=== PATIENT | female | born 1940 | race Caucasian/White ===

== ENCOUNTER 2017-03-10 08:48 | Day surgery (SDC) | payer MEDICARE ==
[~2017-03-10 08:48] MED LIST: Midazolam 1 MG/ML 2 ML SDV ONE; Propofol 200 MG/20 ML SDV ONE; fentaNYL 100 MCG/2 ML SDV ONE
[2017-03-10] MEDS ORDERED: Lactated Ringers 0 ML ONE (08:49)
[2017-03-10] MEDS ORDERED: Bupivacaine 0.5% 50 ML MDV ONE (09:44)
[2017-03-10] MEDS ORDERED: Bacitracin Oint 1 GM U/D Packet ONE (09:44)
[2017-03-10] MEDS ORDERED: Lidocaine 1% with EPINEPHrine 1:100,000 50 ML MDV ONE (09:44)
[2017-03-10] MEDS ORDERED: Sodium Chloride 0.9% 1,000 ML IV SCH (10:30)
[2017-03-10] MEDS ORDERED: ceFAZolin 2 GM in Premix Bag 1 BAG IV ONE ×2 (11:00)
[2017-03-10 12:12] VITALS: BP 133/77
--- NOTE | 2017-03-10 13:08 | OR ---
DATE OF PROCEDURE: 03/10/2017 PROCEDURE: 1. Excision of left posterior leg skin lesion (7.2 cm). 2. Intermediate closure of #1. COMPLICATIONS: None. FORM BUILDING SUPERVISOR: None. ANESTHESIA: 1. MAC (light MAC). 2. Local anesthetic. PREOPERATIVE DIAGNOSIS: Large skin lesion, concern for malignancy/painful. POSTOPERATIVE DIAGNOSIS: Large skin lesion, concern for malignancy/painful. RISKS: Risks, benefits, alternatives, limitations including, but not limited to infection, bleeding, and chronic wound formation were discussed with the patient. We also discussed the fact that she is on Coumadin and has some significant COPD risks, which we discussed with her. PROCEDURE IN DETAIL: The patient was placed in the right lateral decubitus position. Local anesthetic was used to anesthetize the area. This was noted to be 2.8 cm and was carried out with a 3:1 ratio with a 7 cm total excision length, width was 2.2 cm. This was then carried down with a 15 blade and electrocautery was used to excise this. Prior to removal, a single stitch was placed. Double stitch was placed lateral. The wound was then closed by slowly elevating the skin flaps, then 3-0 Vicryl, then a 4-0 Prolene in a running nonlocked position, then horizontal mattress sutures in combination with interrupted nylons. Dressings were applied. The patient tolerated the procedure well. Presley Dorantes MD /[id number]
== END 2017-03-10 11:35 | disposition home or self-care (01) ==
LOC: JP.SDS 08:48
PROVIDERS: ATTEND Surgery
DX: C44.719 Basal cell carcinoma of skin of left lower limb, including hip (principal); J44.9 Chronic obstructive pulmonary disease, unspecified; K21.9 Gastro-esophageal reflux disease without esophagitis; E11.22 Type 2 diabetes mellitus with diabetic chronic kidney disease; N18.9 Chronic kidney disease, unspecified; Z91.09 Other allergy status, other than to drugs and biological substances
CPT/HCPCS: 11606; 12032; 36415; 80048; 85027; 85610; 88305; J0690; J2250; J2704; J3010; J7040; J7120

== ENCOUNTER 2017-06-07 07:19 | Day surgery (SDC) | payer MEDICARE ==
[2017-06-07] MEDS ORDERED: Dextrose 5%-Lactated Ringers 1,000 ML IV SCH (08:00)
[2017-06-07] MEDS ORDERED: fentaNYL 100 MCG/2 ML SDV ONE (08:02)
[2017-06-07] MEDS ORDERED: Midazolam 1 MG/ML 2 ML SDV ONE (08:03)
[2017-06-07] MEDS ORDERED: Propofol 200 MG/20 ML SDV ONE (08:04)
[2017-06-07] MEDS ORDERED: Glycopyrrolate 0.2 MG/ML 2 ML SDV IVPUSH ONE (08:30)
[2017-06-07 10:37] VITALS: BP 153/81
--- NOTE | 2017-06-11 21:30 | OR ---
DATE OF PROCEDURE: 06/07/2017 PREOPERATIVE DIAGNOSIS: History of Fernandes esophagus. POSTOPERATIVE DIAGNOSES: 1. History of Fernandes esophagus. 2. Diffuse mild gastritis. OPERATIVE PROCEDURES: Esophagogastroduodenoscopy with; 1. Biopsies of antrum for CLOtest. 2. Biopsies of esophagogastric junction for surveillance of Fernandes esophagus. ANESTHESIA: IV sedation. INDICATION FOR PROCEDURE: The patient is a 77-year-old status post previous biopsy showing Fernandes esophagus involving the esophagogastric junction. Presently, she is on Protonix 40 mg a day and has good symptom control of reflux. Plan is to proceed with an upper GI endoscopy with biopsies as indicated. Potential risks including bleeding and perforation were discussed, and the patient wishes to proceed. DETAILS OF PROCEDURE: The patient was taken to the operating room and placed in a left lateral decubitus position. IV sedation was administered, after which the upper GI endoscope was passed orally through the length of the esophagus and into the stomach with retroflexion view of the fundus, and thereafter through the pyloric channel and roughly to the junction of the third and fourth portions of the duodenum. Findings included normal hypopharynx, larynx, upper esophageal sphincter, and esophageal body. The EG junction area was associated with small hiatal hernia. There was some upward extension of the gastroesophageal junction mucosal lining consistent with Fernandes esophagus. No packing or stricturing or other signs of neoplastic change were noted. Within the stomach, there was more or less mild redness associated with some bile retention likely causing the redness. There were no erosions or ulcers. The pyloric channel and visualized portions of the duodenum were unremarkable. At this point, biopsies were obtained from the antrum and sent for CLOtest for H. pylori. Multiple biopsies were then obtained from the esophagogastric junction and sent for histologic evaluation. Minimal bleeding from the biopsy site was seen and the procedure then concluded. Plan will be to have the patient continue the present medical regimen. Assuming there is no progression toward dysphagia on today's biopsies, would recommend a repeat upper endoscopy in 2 years. Troy Horowitz MD /[id number]
== END 2017-06-07 10:38 | disposition home or self-care (01) ==
LOC: JP.SDS 07:19
PROVIDERS: ATTEND Surgery
DX: K44.9 Diaphragmatic hernia without obstruction or gangrene (principal); E11.22 Type 2 diabetes mellitus with diabetic chronic kidney disease; I12.9 Hypertensive chronic kidney disease with stage 1 through stage 4 chronic kidney disease, or unspecified chronic kidney disease; N18.9 Chronic kidney disease, unspecified; J44.9 Chronic obstructive pulmonary disease, unspecified; I73.9 Peripheral vascular disease, unspecified; Z91.09 Other allergy status, other than to drugs and biological substances
CPT/HCPCS: 87081; 88305; J2250; J2704; J3010; J3490; J7042

== ENCOUNTER 2019-11-08 06:22 | Day surgery (SDC) | payer MEDICARE ==
[2019-11-08] MEDS ORDERED: ceFAZolin 1 GM in Premix Bag 1 BAG IV ONE (07:00)
[2019-11-08] MEDS ORDERED: ceFAZolin 2 GM in Premix Bag 1 BAG IV ONE (07:00)
[2019-11-08] MEDS ORDERED: Dextrose 5%-Lactated Ringers 1,000 ML IV SCH (07:00)
[2019-11-08] MEDS ORDERED: Midazolam 1 MG/ML 2 ML SDV ONE (07:09)
[2019-11-08] MEDS ORDERED: fentaNYL 100 MCG/2 ML SDV ONE (07:09)
[2019-11-08] MEDS ORDERED: Propofol 200 MG/20 ML SDV ONE ×2 (07:09→08:31)
[2019-11-08] MEDS ORDERED: Lidocaine 1% with EPINEPHrine 1:100,000 50 ML MDV ONE (07:47)
[2019-11-08] MEDS ORDERED: Bupivacaine 0.5% 50 ML MDV ONE (07:47)
[2019-11-08 10:33] VITALS: BP 144/77; PULSE 93
--- NOTE | 2019-11-19 21:39 | OR ---
DATE OF PROCEDURE: 11/08/2019 SURGEON: Troy Horowitz MD PREOPERATIVE DIAGNOSES: 1. History of Fernandes's esophagus. 2. Rule out amyloidosis. POSTOPERATIVE DIAGNOSES: 1. History of Fernandes's esophagus with minimal inflammation at esophagogastric junction. 2. Mild antral gastritis. 3. Rule out amyloidosis. OPERATIVE PROCEDURES: 1. Esophagogastroduodenoscopy with;. a. Biopsy of esophagogastric junction for histologic evaluation. b. Biopsies of antrum for CLOtest. 2. Flexible colonoscopy with rectal biopsies. 3. Excision of a portion of abdominal wall fat (88044). 4. Gingival biopsy (30965). ANESTHESIA: Local plus IV sedation. INDICATION FOR PROCEDURE: A 79-year-old female referred for followup endoscopy for her surveillance of the Fernandes's esophagus. She also was felt to be a person with some amyloidosis per Nephrology, and rectal biopsies, abdominal fat biopsies and gingival biopsies were requested by Dr. Yusuf of Nephrology Department in [place]. Potential risks of the procedure including bleeding, infection, perforation of the GI tract were reviewed, and the patient wishes to proceed. DETAILS OF PROCEDURE: The patient was taken to the operating room and placed in a left lateral decubitus position. IV sedation was administered, after which the upper GI endoscope was passed orally through the length of the esophagus and into the stomach with retroflexion view of the fundus, and thereafter through the pyloric channel, then into the junction of the 3rd and 4th portions of the duodenum. Findings included normal hypopharynx, larynx, upper esophageal sphincter, and esophageal body. At the EG junction, there was a small hiatal hernia. There was some upward extension of the gastroesophageal junction mucosal line consistent with history of Fernandes esophagus. There was minimal gross inflammation. There was no plaquing or stricturing identified. Within the antrum, there was some patchy redness, but otherwise felt well and visualized portions of the duodenum were unremarkable. At this point, biopsies were obtained from the antrum and sent for CLOtest for H pylori. Multiple biopsies were then obtained from the area of the columnar mucosa and above the esophagogastric junction. At the end, minimal bleeding from those sites were seen and the procedure was then concluded. Attention was then taken to the colonoscopy. Initial digital rectal exam was performed and was unremarkable. Colonoscope was then passed into the rectum with retroflexion revealing uncomplicated hemorrhoidal columns. Scope was eventually passed to the cecum. There was grossly no obvious pathology with there being no diverticular disease. No areas of colitis. No polyps or other signs of neoplasia. The scope was then withdrawn and above findings were obtained. Multiple rectal biopsies were obtained and sent for histologic evaluation. No bleeding from those biopsy sites was seen and the procedure then concluded. The patient now placed in supine position. The abdomen was prepped and draped in the right mid abdomen. A linear incision was made and carried down through the skin and subcutaneous tissue. Roughly 5.5 cm segment of subcutaneous fat was then excised and was sent for histologic evaluation. The incision was then closed with some 4-0 Vicryl stitch deep and then 4-0 Vicryl subcuticular stitch along with surgical glue. Finally, a gingival biopsy was obtained at the base of the 3rd tooth to the right of midline on the lower jaw. This gingival biopsy was obtained from the edge of the tooth downward and sent for histologic evaluation. This area was approximated with single 3-0 chromic stitch and procedure concluded. The patient was taken to the recovery room in satisfactory condition. There were no evident complications. Troy Horowitz MD /[id number]
== END 2019-11-08 10:50 | disposition home or self-care (01) ==
LOC: JP.SDS 06:22
PROVIDERS: ATTEND Surgery
DX: K29.50 Unspecified chronic gastritis without bleeding (principal); K20.9 Esophagitis, unspecified; M79.89 Other specified soft tissue disorders; L83 Acanthosis nigricans; R23.4 Changes in skin texture; K44.9 Diaphragmatic hernia without obstruction or gangrene; K64.9 Unspecified hemorrhoids; J44.9 Chronic obstructive pulmonary disease, unspecified; E66.9 Obesity, unspecified; I12.9 Hypertensive chronic kidney disease with stage 1 through stage 4 chronic kidney disease, or unspecified chronic kidney disease; N18.3 Chronic kidney disease, stage 3 (moderate); E11.22 Type 2 diabetes mellitus with diabetic chronic kidney disease; Z87.19 Personal history of other diseases of the digestive system
CPT/HCPCS: 22903; 36415; 40808; 43239; 45380; 85027; 85610; 87081; 88304; 88305; 88312; J0690; J2250; J2704; J3010; J3490; J7121; 88313

== ENCOUNTER 2019-11-27 09:13 | Emergency (ER) | payer MEDICARE ==
[2019-11-27 09:36] VITALS: BP 157/65; PULSE 95
--- NOTE | 2019-11-27 09:54 | EDM.PDOC ---
ED HPI GENERAL MEDICAL PROBLEM - General Chief Complaint: ENT Problem Stated Complaint: blood nose Time Seen by Provider: 11/27/19 09:47 Source of Information: Reports: Patient, Family, RN Notes Reviewed History Limitations: Reports: No Limitations - History of Present Illness INITIAL COMMENTS - FREE TEXT/NARRATIVE: 79-year-old female presents emergency department a complaint of nosebleed, she states she has been dealing with this nosebleed on and off for about a week however the last 24 hours has been difficult for her just continues to keep oozing. She is on Coumadin for history of blood clot in her leg and has been having difficulty with her hemoglobin about a month ago was around 9 has underwent EGD and colonoscopy without any etiology to her anemia. She states he r INR was checked 2 weeks ago and was at 2.1, no lightheadedness, does use oxygen for her COPD and her nose can get dry at times - Related Data Allergies Allergy/AdvReac Type Severity Reaction Status Date / Time metal Allergy Rash Uncoded 11/27/19 09:31 Home Meds: Home Meds Ferrous Gluconate 325 mg PO DAILY 11/07/14 [History] Sennosides [Senokot] 1 tab PO BID 11/07/14 [History] timoloL maleate [Timoptic 0.5% Opth Soln] 1 drop EYEBOTH DAILY 11/07/14 [History] Allopurinol [Zyloprim] 350 mg PO DAILY 04/14/15 [History] Ascorbic Acid 250 mg PO DAILY 03/09/17 [History] Latanoprost 1 drop EYEBOTH DAILY 03/09/17 [History] Omeprazole 40 mg PO DAILY 03/09/17 [History] Triamcinolone Acetonide [Triamcinolone Acetonide 0.1% Crm] 1 applic TOP TID PRN 03/09/17 [History] calcitrioL [Calcitriol] 0.25 mcg PO DAILY 03/09/17 [History] Warfarin [Coumadin] 2.5 mg PO .MON,TUE,TH,Tue03/10/17 [History] Warfarin [Coumadin] 3.75 mg PO .TUE,TUE,Tue03/10/17 [History] Albuterol Sulfate [Proair Hfa] 2 puff IH Q4H PRN 11/07/19 [History] Diclofenac Sodium [Voltaren 1% Gel] 1 applic TOP QID PRN 11/07/19 [History] Docusate Sodium [Colace] 100 mg PO DAILY 11/07/19 [History] Ergocalciferol (Vitamin D2) [Vitamin D2] 1,250 mcg PO DAILY 11/07/19 [History] Linagliptin [Tradjenta] 5 mg PO DAILY 11/07/19 [History] Potassium Chloride [Klor-Con M20] 20 meq PO BIDMEALS 11/07/19 [History] Tofacitinib Citrate [Xeljanz] 5 mg PO DAILY 11/07/19 [History] Torsemide 20 mg PO DAILY 11/07/19 [History] amLODIPine [Norvasc] 5 mg PO DAILY 11/07/19 [History] Past Medical History HEENT History: Reports: Cataract, Glaucoma, Impaired Vision, Other (See Below) Other HEENT History: thrush Cardiovascular History: Reports: Blood Clots/VTE/DVT, Hypertension, Other (See Below) Other Cardiovascular History: artherosclerosis Respiratory History: Reports: COPD, Other (See Below) Other Respiratory History: History of pneumonia. Gastrointestinal History: Reports: Colon Polyp, GERD, Other (See Below) Other Gastrointestinal History: Fernandes's espho Genitourinary History: Reports: Renal Disease, UTI, Recurrent, Other (See Below) Other Genitourinary History: Bladder "tacking" EMAIL DEPLOYMENT SPECIALIST History: Reports: , Other (See Below) Other EMAIL DEPLOYMENT SPECIALIST History: "suspicious growth on ovary" Musculoskeletal History: Reports: Arthritis, RA Other Musculoskeletal History: polyarthropathy, knee pain Neurological History: Reports: Migraines Endocrine/Metabolic History: Reports: Diabetes, Type II, Hyperparathyroidism, Obesity/BMI 30+ Other Endocrine/Metabolic History: borderline diabetic Hematologic History: Reports: Anemia, Anticoagulation Therapy, Blood Transfusion(s) Other Oncologic History: Skin Dermatologic History: Reports: Other (See Below) Other Dermatologic History: navdeep procedure done to treat skin cancer - Infectious Disease History Infectious Disease History: Reports: Chicken Pox, Mumps - Past Surgical History HEENT Surgical History: Reports: Cataract Surgery Cardiovascular Surgical History: Reports: None Respiratory Surgical History: Reports: None GI Surgical History: Reports: Cholecystectomy, Colonoscopy, EGD Female Surgical History: Reports: Hysterectomy Neurological Surgical History: Reports: None Musculoskeletal Surgical History: Reports: None Oncologic Surgical History: Reports: None Dermatological Surgical History: Reports: Skin Biopsy, Other (See Below) Social & Family History - Family History Family Medical History: Noncontributory Cardiac: Reports: Bypass, CAD, High Cholesterol, Hypertension, NC : Reports: Renal Disease/Insufficiency Neurological: Reports: CVA Endocrine/Metabolic: Reports: Diabetes, type II Oncologic: Reports: None, Other (See Below) Other Oncologic Family History: history of "cancer", unsure what kind. - Tobacco Use Smoking Status *Q: Former Smoker Used Tobacco, but Quit: Yes Month/Year Tobacco Last Used: 2014 - Caffeine Use Caffeine Use: Reports: Coffee - Recreational Drug Use Recreational Drug Use: No ED ROS ENT - Review of Systems Review Of Systems: See Below Constitutional: Reports: No Symptoms HEENT: Reports: Nosebleed Respiratory: Reports: No Symptoms Cardiovascular: Reports: No Symptoms GI/Abdominal: Reports: No Symptoms ED EXAM, ENT - Physical Exam Exam: See Below Exam Limited By: No Limitations General Appearance: Alert, WD/WN, No Apparent Distress Nose: Normal Inspection, Normal Mucousa, Dried Blood. No: Active Bleeding Mouth/Throat: Normal Inspection, Normal Lips, Normal Oropharynx, Other (Blood in the posterior pharynx) Respiratory/Chest: No Respiratory Distress Course - Vital Signs Last Recorded V/S: Last Vital Signs Temp 98.6 F 11/27/19 09:35 Pulse 95 11/27/19 09:35 Resp 18 11/27/19 09:35 BP 157/65 H 11/27/19 09:35 Pulse Ox 95 11/27/19 09:35 - Orders/Labs/Meds Labs: Laboratory Tests 11/27/19 11/27/19 11/27/19 Range/Units 10:00 10:00 10:00 WBC 9.8 (4.5-11.0) K/uL RBC 2.44 L (3.30-5.50) M/uL Hgb Cancelled 7.2 L Hct 24.7 L (36.0-48.0) % MCV 101 H (80-98) fL MCH 30 (27-31) pg MCHC 29 L (32-36) % Plt Count 227 (150-400) K/uL Add Manual Diff Yes Neutrophils % (Manual) 79 H (36-66) % Band Neutrophils % 1 L (5-11) % Lymphocytes % (Manual) 11 L (24-44) % Monocytes % (Manual) 7 H (2-6) % Eosinophils % (Manual) 2 (2-4) % Basophils % (Manual) 0 (0-1) % PT 52.7 H (9.5-12.0) sec INR 4.99 H* D (0.80-1.20) Meds: Medications Discontinued Medications Generic Name Dose Route Start Last Admin Trade Name Freq PRN Reason Stop Dose Admin Phytonadione 2.5 mg 11/27/19 10:55 Mephyton PO 11/27/19 10:56 ONETIME ONE Departure - Departure Time of Disposition: 11:04 Disposition: Home, Self-Care 01 Condition: Fair Clinical Impression: Subtherapeutic anticoagulation, Epistaxis - Discharge Information Referrals: Romeo Pena MD [Primary Care Provider] - Forms: ED Department Discharge Additional Instructions: Keep your follow-up appointment with your primary care provider tomorrow Sepsis Event Note (ED) - Evaluation Sepsis Screening Result: No Definite Risk - Focused Exam Vital Signs: Vital Signs Temp Pulse Resp BP Pulse Ox 11/27/19 09:35 98.6 F 95 18 157/65 H 95 - Assessment/Plan Plan: Assessment Acuity = acute Site and laterality = epistaxis Etiology = secondary to supratherapeutic anticoagulation Manifestations = none Location of injury = Home Lab values = 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
[2019-11-27] MEDS ORDERED: Phytonadione 5 MG Tab PO ONE (10:55)
== END 2019-11-27 11:27 | disposition home or self-care (01) ==
LOC: JP.ED 09:13
DX: R04.0 Epistaxis (principal); R79.1 Abnormal coagulation profile; I10 Essential (primary) hypertension; J44.9 Chronic obstructive pulmonary disease, unspecified; K21.9 Gastro-esophageal reflux disease without esophagitis; M06.9 Rheumatoid arthritis, unspecified; E11.9 Type 2 diabetes mellitus without complications; E21.3 Hyperparathyroidism, unspecified; E66.9 Obesity, unspecified; Z86.718 Personal history of other venous thrombosis and embolism; Z79.01 Long term (current) use of anticoagulants; Z79.84 Long term (current) use of oral hypoglycemic drugs; Z79.899 Other long term (current) drug therapy; Z87.891 Personal history of nicotine dependence; Z91.09 Other allergy status, other than to drugs and biological substances
CPT/HCPCS: 36415; 85025; 85610; 99283; A9270; 99284

== ENCOUNTER 2020-01-05 00:31 | Emergency (ER) | payer MEDICARE ==
[2020-01-05] MEDS ORDERED: Sodium Chloride 0.9% 10 ML Syringe FLUSH PRN (00:33)
--- NOTE | 2020-01-05 00:41 | EDM.PDOC ---
ED HPI GENERAL MEDICAL PROBLEM - General Chief Complaint: General Stated Complaint: [facility] Time Seen by Provider: 01/05/20 00:33 Source of Information: Reports: Patient, EMS History Limitations: Reports: No Limitations - History of Present Illness INITIAL COMMENTS - FREE TEXT/NARRATIVE: Carolin is a 79-year-old female who was brought in by EMS for evaluation of generalized weakness. Patient was ambulating with the assistance of her family when she can no longer walk and they assisted her to the ground. Patient is on chronic anticoagulation for history of blood clots and they have been having difficulty keeping her INR was under good control recently. Patient denies any head injury or pain. She had no loss of consciousness. She states over the last couple of days she has become increasingly weak. She denies any fever, chills, sore throat, headache, body aches, cough or shortness of breath, chest pain, back pain, abdominal pain, nausea, vomiting, or diarrhea. She has had no rash. She denies any focal weakness, numbness, or tingling. She has had no vision changes. She has had no difficulty with articulation. EMS did do an EKG which shows normal sinus rhythm with frequent premature atrial contractions. Onset: Gradual (Over the last 4 to 5 days) Duration: Getting Worse Location: Reports: Generalized Context: Reports: Activity denies pain Pain Score (Numeric/FACES): 0 - Related Data Allergies Allergy/AdvReac Type Severity Reaction Status Date / Time metal Allergy Unknown Rash Uncoded 01/05/20 01:04 Home Meds: Home Meds Ferrous Gluconate 325 mg PO DAILY 11/07/14 [History] timoloL maleate [Timoptic 0.5% Opth Soln] 1 drop EYEBOTH DAILY 11/07/14 [History] Allopurinol [Zyloprim] 350 mg PO DAILY 04/14/15 [History] Ascorbic Acid 250 mg PO DAILY 03/09/17 [History] Latanoprost 1 drop EYEBOTH DAILY 03/09/17 [History] Omeprazole 40 mg PO DAILY 03/09/17 [History] Triamcinolone Acetonide [Triamcinolone Acetonide 0.1% Crm] 1 applic TOP TID PRN 03/09/17 [History] calcitrioL [Calcitriol] 0.25 mcg PO DAILY 03/09/17 [History] Albuterol Sulfate [Proair Hfa] 2 puff IH Q4H PRN 11/07/19 [History] Diclofenac Sodium [Voltaren 1% Gel] 1 applic TOP QID PRN 11/07/19 [History] Docusate Sodium [Colace] 100 mg PO DAILY 11/07/19 [History] Ergocalciferol (Vitamin D2) [Vitamin D2] 1,250 mcg PO DAILY 11/07/19 [History] Linagliptin [Tradjenta] 5 mg PO DAILY 11/07/19 [History] Potassium Chloride [Klor-Con M20] 20 meq PO BIDMEALS 11/07/19 [History] Torsemide [Demadex] 20 mg PO DAILY 11/27/19 [History] Tofacitinib Citrate [Xeljanz] 1 tab PO DAILY 01/05/20 [History] Warfarin [Coumadin] 1 - 1.5 tab PO ASDIRECTED 01/05/20 [History] atorvaSTATin [Lipitor] 1 tab PO BEDTIME 01/05/20 [History] hydrALAZINE [Apresoline] 1 tab PO BID 01/05/20 [History] metOLazone [Metolazone] 1 tab PO Q48H 01/05/20 [History] predniSONE 2.5 mg PO ASDIRECTED 01/05/20 [History] Past Medical History HEENT History: Reports: Cataract, Glaucoma, Impaired Vision, Other (See Below) Other HEENT History: thrush Cardiovascular History: Reports: Blood Clots/VTE/DVT, Hypertension, Other (See Below) Other Cardiovascular History: artherosclerosis Respiratory History: Reports: COPD, Other (See Below) Other Respiratory History: History of pneumonia. Gastrointestinal History: Reports: Colon Polyp, GERD, Other (See Below) Other Gastrointestinal History: Fernandes's espho Genitourinary History: Reports: Renal Disease, UTI, Recurrent, Other (See Below) Other Genitourinary History: Bladder "tacking" [employer] History: Reports: , Other (See Below) Other [employer] History: "suspicious growth on ovary" Musculoskeletal History: Reports: Arthritis, RA Other Musculoskeletal History: polyarthropathy, knee pain Neurological History: Reports: Migraines Endocrine/Metabolic History: Reports: Diabetes, Type II, Hyperparathyroidism, Obesity/BMI 30+ Other Endocrine/Metabolic History: borderline diabetic Hematologic History: Reports: Anemia, Anticoagulation Therapy, Blood Transfusion(s) Other Oncologic History: Skin Dermatologic History: Reports: Other (See Below) Other Dermatologic History: navdeep procedure done to treat skin cancer - Infectious Disease History Infectious Disease History: Reports: Chicken Pox, Mumps - Past Surgical History HEENT Surgical History: Reports: Cataract Surgery Cardiovascular Surgical History: Reports: None Respiratory Surgical History: Reports: None GI Surgical History: Reports: Cholecystectomy, Colonoscopy, EGD Female Surgical History: Reports: Hysterectomy Neurological Surgical History: Reports: None Musculoskeletal Surgical History: Reports: None Oncologic Surgical History: Reports: None Dermatological Surgical History: Reports: Skin Biopsy, Other (See Below) Social & Family History - Family History Family Medical History: Noncontributory Cardiac: Reports: Bypass, CAD, High Cholesterol, Hypertension, SD : Reports: Renal Disease/Insufficiency Neurological: Reports: CVA Endocrine/Metabolic: Reports: Diabetes, type II Oncologic: Reports: None, Other (See Below) Other Oncologic Family History: history of "cancer", unsure what kind. - Caffeine Use Caffeine Use: Reports: Coffee ED ROS GENERAL - Review of Systems Review Of Systems: See Below Constitutional: Reports: Malaise, Weakness HEENT: Reports: No Symptoms Respiratory: Reports: Shortness of Breath (Patient has a history of COPD and is on home oxygen as needed at 2 L/min.) Cardiovascular: Reports: Edema, Lightheadedness Endocrine: Reports: No Symptoms GI/Abdominal: Reports: No Symptoms : Reports: No Symptoms Musculoskeletal: Reports: No Symptoms Skin: Reports: No Symptoms Neurological: Reports: Difficulty Walking, Weakness Psychiatric: Reports: No Symptoms Hematologic/Lymphatic: Reports: No Symptoms Immunologic: Reports: No Symptoms ED EXAM, NEURO - Physical Exam Exam: See Below Exam Limited By: No Limitations General Appearance: Alert, No Apparent Distress, Anxious Eye Exam: Bilateral Eye: EOMI, PERRL Throat/Mouth: Normal Inspection, Normal Lips, Normal Oropharynx, Normal Voice, No Airway Compromise Head Exam: Atraumatic, Normocephalic Neck: Normal Inspection, Supple, Non-Tender Respiratory/Chest: No Respiratory Distress, No Accessory Muscle Use, Chest Non- Tender, Decreased Breath Sounds (Bibasilar), Rales (Scant) Cardiovascular: Normal Peripheral Pulses, Regular Rate, Rhythm, Extra Beats GI/Abdominal: Normal Bowel Sounds, Soft, Non-Tender, No Organomegaly, No Distention, No Abnormal Bruit, No Mass Neurological: Alert, Normal Mood/Affect, Normal Dorsiflexion, Normal Plantar Flexion, No Motor/Sensory Deficits, Oriented x 3 Extremities: Normal Inspection, Non-Tender, Normal Capillary Refill, Pedal Edema (3+ pitting edema to the knees bilaterally.) Psychiatric: Normal Affect, Normal Mood Skin Exam: Warm, Dry, Intact, Pallor #1 Interpretation EKG Date: 01/05/20 Time: 00:35 Rhythm: NSR [place]: Normal P-Wave: Present (Shortened [place] interval) QRS: RBBB ST-T: Normal QT: Prolonged Course - Vital Signs Last Recorded V/S: Last Vital Signs Temp 36.9 C 01/05/20 00:39 Pulse 81 01/05/20 00:39 Resp 19 01/05/20 00:39 BP 128/50 L 01/05/20 00:39 Pulse Ox 91 L 01/05/20 00:39 - Orders/Labs/Meds Orders: Active Orders 24 hr Category Date Time Status EKG Documentation Completion [RC] ASDIRECTED Care 01/05/20 00:37 Active Chest 1V Frontal [CR] Stat Exams 01/05/20 01:36 Ordered COMPREHENSIVE METABOLIC PN,CMP [CHEM] Stat Lab 01/05/20 01:00 Received MAGNESIUM [CHEM] Stat Lab 01/05/20 01:31 Ordered PRO B-TYPE NATRIUR PEPT,BNPPRO [CHEM] Stat Lab 01/05/20 01:00 Received TROPONIN I [CHEM] Stat Lab 01/05/20 01:00 Received UA W/MICROSCOPIC [URIN] Stat Lab 01/05/20 01:42 Ordered Potassium Chloride [KCL 20 MEQ in Water 100 ML] 20 meq Med 01/05/20 01:34 Active Premix Bag 1 bag IV ONETIME Sodium Chloride 0.9% [Saline Flush] Med 01/05/20 00:33 Active 10 ml FLUSH ASDIRECTED PRN Saline Lock Insert [OM.PC] Routine Oth 01/05/20 00:33 Ordered EKG 12 Lead [EK] Routine Ther 01/05/20 00:37 Ordered Medication Orders Potassium Chloride 20 meq/ (Premix) 100 mls @ 50 mls/hr IV ONETIME ONE Stop: 01/05/20 03:33 Sodium Chloride (Saline Flush) 10 ml FLUSH ASDIRECTED PRN PRN Reason: Keep Vein Open Last Admin: 01/05/20 01:09 Dose: 10 ml Documented by: SAMIA Labs: Laboratory Tests 01/05/20 01/05/20 01/05/20 Range/Units 01:00 01:00 01:00 WBC 8.0 (4.5-11.0) K/uL RBC 3.40 (3.30-5.50) M/uL Hgb 9.7 L (12.0-15.0) g/dL Hct 31.3 L (36.0-48.0) % MCV 92 (80-98) fL MCH 29 (27-31) pg MCHC 31 L (32-36) % Plt Count 176 (150-400) K/uL Neut % (Auto) 82 H (36-66) % Lymph % (Auto) 10 L (24-44) % [place] % (Auto) 7 H (2-6) % Eos % (Auto) 0 L (2-4) % Baso % (Auto) 0 (0-1) % PT 14.1 H (9.5-12.0) sec INR 1.30 H D (0.80-1.20) Lactic Acid 1.6 (0.4-2.0) mmol/L Meds: Medications Generic Name Dose Route Start Last Admin Trade Name Freq PRN Reason Stop Dose Admin Potassium Chloride 20 meq/ 100 mls @ 50 mls/hr 01/05/20 01:34 Premix IV 01/05/20 03:33 ONETIME ONE Sodium Chloride 10 ml 01/05/20 00:33 01/05/20 01:09 Saline Flush FLUSH 10 ml ASDIRECTED PRN Administration Keep Vein Open Discontinued Medications Generic Name Dose Route Start Last Admin Trade Name Freq PRN Reason Stop Dose Admin Potassium Chloride 40 meq/ 100 mls @ 25 mls/hr 01/05/20 01:23 01/05/20 01:36 Premix IV 01/05/20 05:22 Not Given ONETIME ONE Potassium Chloride 20 meq/ 112 mls @ 50 mls/hr 01/05/20 01:45 Lidocaine HCl 2 ml/ Sodium IV Chloride Q2H PHIL[place]PE Potassium Chloride Confirm 01/05/20 01:35 01/05/20 01:39 Kcl 20 Meq In Water 100 Ml Administered 01/05/20 01:36 Not Given Dose 100 mls @ as directed .ROUTE .STK-MED ONE Lidocaine HCl 5 ml 01/05/20 01:25 01/05/20 01:40 Xylocaine-Mpf 1% INJECT 01/05/20 01:26 Not Given ONETIME ONE Lidocaine HCl 2 ml 01/05/20 01:37 Xylocaine-Mpf 1% INJECT 01/05/20 01:38 ONETIME ONE Lidocaine HCl Confirm 01/05/20 01:35 01/05/20 01:39 Xylocaine-Mpf 1% Administered 01/05/20 01:36 Not Given Dose 5 ml .ROUTE .STK-MED ONE - Radiology Interpretation Free Text/Narrative:: Portable 1 view chest x-ray: Mild pulmonary edema bilaterally with curly B-lines. Significant right sided pleural effusion. Flattening of the diaphragms consistent with COPD. No acute infiltrates. No osseous abnormalities noted on the chest x-ray. - Re-Assessments/Exams Free Text/Narrative Re-Assessment/Exam: 01/05/20 02:00 I discussed the case with Dr. Cordero from the emergency room at [facility] who accepts the patient in transfer for admission to their facility for further care. The patient is requiring transfer because of acute on chronic kidney failure likely needing dialysis, hypokalemia, hypomagnesemia, generalized weakness, and congestive heart failure. [facility] is currently at full capacity necessitating the need to transfer the patient, however, she will likely need intervention with nephrology and possibly critical care given her presenting circumstances. We are repleting her potassium of 2.5 and her magnesium of 1.5 with a potassium rider 20 mEq and magnesium sulfate 2 g. Departure - Departure Time of Disposition: 02:08 Disposition: DC/Tfer to Other 70 Clinical Impression: Hypokalemia, Elevated troponin I level, Peripheral edema Congestive heart failure (CHF) Qualifiers: Heart failure type: unspecified Heart failure chronicity: acute on chronic Qualified Code(s): I50.9 - Heart failure, unspecified Renal failure, acute Qualifiers: Acute renal failure type: unspecified Qualified Code(s): N17.9 - Acute kidney failure, unspecified - Discharge Information Forms: ED Department Discharge Sepsis Event Note (ED) - Focused Exam Vital Signs: Vital Signs Temp Pulse Resp BP Pulse Ox 01/05/20 00:39 36.9 C 81 19 128/50 L 91 L 01/05/20 00:38 36.9 C 81 19 128/50 L 91 L - Problem List & Annotations (1) Congestive heart failure (CHF) SNOMED Code(s): 13901237 Code(s): I50.9 - HEART FAILURE, UNSPECIFIED Status: Acute Priority: High Current Visit: No Qualifiers: Heart failure type: unspecified Heart failure chronicity: acute on chronic Qualified Code(s): I50.9 - Heart failure, unspecified (2) Elevated troponin I level SNOMED Code(s): 942672175 Code(s): R77.8 - OTHER SPECIFIED ABNORMALITIES OF PLASMA PROTEINS Status: Acute Priority: High Current Visit: No (3) Hypokalemia SNOMED Code(s): 40848852 Code(s): E87.6 - HYPOKALEMIA Status: Acute Priority: High Current Visit: No (4) Peripheral edema SNOMED Code(s): 721494194 Code(s): R60.9 - EDEMA, UNSPECIFIED Status: Chronic Priority: Medium Current Visit: No (5) Renal failure, acute SNOMED Code(s): 13609183 Code(s): N17.9 - ACUTE KIDNEY FAILURE, UNSPECIFIED Status: Acute Priority: High Current Visit: No Qualifiers: Acute renal failure type: unspecified Qualified Code(s): N17.9 - Acute kidney failure, unspecified - Problem List Review Problem List Initiated/Reviewed/Updated: Yes - My Orders Last 24 Hours: My Active Orders 01/05/20 00:33 Sodium Chloride 0.9% [Saline Flush] 10 ml FLUSH ASDIRECTED PRN Saline Lock Insert [OM.PC] Routine 01/05/20 00:37 EKG Documentation Completion [RC] ASDIRECTED EKG 12 Lead [EK] Routine 01/05/20 01:00 COMPREHENSIVE METABOLIC PN,CMP [CHEM] Stat PRO B-TYPE NATRIUR PEPT,BNPPRO [CHEM] Stat TROPONIN I [CHEM] Stat 01/05/20 01:31 MAGNESIUM [CHEM] Stat 01/05/20 01:34 Potassium Chloride [KCL 20 MEQ in Water 100 ML] 20 meq Premix Bag 1 bag IV ONETIME 01/05/20 01:36 Chest 1V Frontal [CR] Stat 01/05/20 01:42 UA W/MICROSCOPIC [URIN] Stat - Assessment/Plan Last 24 Hours: My Active Orders 01/05/20 00:33 Sodium Chloride 0.9% [Saline Flush] 10 ml FLUSH ASDIRECTED PRN Saline Lock Insert [OM.PC] Routine 01/05/20 00:37 EKG Documentation Completion [RC] ASDIRECTED EKG 12 Lead [EK] Routine 01/05/20 01:00 COMPREHENSIVE METABOLIC PN,CMP [CHEM] Stat PRO B-TYPE NATRIUR PEPT,BNPPRO [CHEM] Stat TROPONIN I [CHEM] Stat 01/05/20 01:31 MAGNESIUM [CHEM] Stat 01/05/20 01:34 Potassium Chloride [KCL 20 MEQ in Water 100 ML] 20 meq Premix Bag 1 bag IV ONETIME 01/05/20 01:36 Chest 1V Frontal [CR] Stat 01/05/20 01:42 UA W/MICROSCOPIC [URIN] Stat
[2020-01-05] MEDS ORDERED: Potassium Chloride Riders 40 MEQ in Premix Bag 1 BAG IV ONE (01:23)
[2020-01-05] MEDS ORDERED: Potassium Chloride 20 MEQ in Premix Bag 1 BAG IV ONE (01:34)
[2020-01-05] MEDS ORDERED: Potassium Chloride 100 ML ONE (01:35)
[2020-01-05] MEDS ORDERED: Potassium Chloride 20 MEQ, Lidocaine 1% 2 ML in Sodium Chloride 0.9% 100 ML IV SCH (01:45)
[2020-01-05] MEDS ORDERED: Magnesium Sulfate/Water 2 GM in Premix Bag 1 BAG IV ONE (01:56)
[2020-01-05 02:23] VITALS: BP 109/51; PULSE 79
--- NOTE | 2020-01-07 09:17 | CR ---
CHEST: Portable 01/05/2020 at 1:50 AM CLINICAL HISTORY:Weakness COMPARISON:2010 FINDINGS: Heart size is normal pulmonary vascularity is mildly cephalized. This may be positional. There is some prominence of lung markings in both lower lung bertrand. There are small bilateral pleural effusions. There are atherosclerotic changes in the aorta. IMPRESSION: Mild vascular cephalization may be positional Mild generalized prominence of lung markings in the mid and lower lung bertrand may represent some mild interstitial edema or pneumonitis Small bibasal effusions
== END 2020-01-05 03:08 | disposition other institution (70) ==
LOC: JP.ED 00:31
DX: I11.0 Hypertensive heart disease with heart failure (principal); I50.9 Heart failure, unspecified; N17.9 Acute kidney failure, unspecified; R79.89 Other specified abnormal findings of blood chemistry; E87.6 Hypokalemia; J44.9 Chronic obstructive pulmonary disease, unspecified; K21.9 Gastro-esophageal reflux disease without esophagitis; M06.9 Rheumatoid arthritis, unspecified; E11.9 Type 2 diabetes mellitus without complications; D64.9 Anemia, unspecified; I45.10 Unspecified right bundle-branch block; E66.9 Obesity, unspecified; Z68.37 Body mass index [BMI] 37.0-37.9, adult; Z86.718 Personal history of other venous thrombosis and embolism; Z79.01 Long term (current) use of anticoagulants; Z91.048 Other nonmedicinal substance allergy status; Z79.899 Other long term (current) drug therapy
CPT/HCPCS: 36415; 71045; 80053; 81001; 83605; 83735; 83880; 84484; 85025; 85610; 93005; 93010; 96365; 96368; 99285; J2001; J3475; J3480